=== PATIENT | female | born 1965 | race Caucasian/White ===

== ENCOUNTER 2024-12-22 21:37 | Emergency (ER) | payer MEDICARE, OTHER, SELFPAY ==
[2024-12-22 21:24] VITALS: BP 120/80; PULSE 70; RESP 16; TEMP 36.6
[2024-12-22 21:30] VITALS: RESP 0; O2SAT 0
== END 2024-12-22 21:47 | disposition home or self-care (01) ==
LOC: ER 21:40
PROVIDERS: Emergency Provider Emergency Medicine
DX: Z53.8 Procedure and treatment not carried out for other reasons (principal)
CPT/HCPCS: 99211